=== PATIENT | male | born 1990 | race Caucasian/White ===

== ENCOUNTER 2021-05-30 07:40 | Emergency (ER) | payer SELFPAY ==
[2021-05-30 08:11] VITALS: BP 144/89; PULSE 86
== END 2021-05-30 09:00 | disposition home or self-care (01) ==
LOC: JD.ED 07:40
DX: K04.7 Periapical abscess without sinus (principal); Z72.0 Tobacco use; Z88.0 Allergy status to penicillin
CPT/HCPCS: 99282